=== PATIENT | male | born 1950 | race Caucasian/White ===

== ENCOUNTER 2016-11-12 13:05 | Emergency (ER) | payer OTHER ==
[2016-11-12 13:40] VITALS: RESP 16; TEMP 97.9
[2016-11-12] MEDS ORDERED: TDAP ADULT 0.5 ML VIAL (BOOSTRIX) IM ONE (13:40)
--- NOTE | 2016-11-12 14:20 | DX ---
Right Index Finger 3 Views History: Laceration distally with possible metal shaving. Comparison: None available. Findings: No fractures identified. Alignment is normal. Bone mineralization is normal. 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 There is soft tissue irregularity at the palmar aspect of the distal phalanx with a 1-mm curvilinear radiopaque structure suspicious f or a foreign object. Impression: Curvilinear 1-mm possible radiopaque foreign object in the region of the laceration. Findings discussed with Dr. Barney Gr today at 1415 hours.
--- NOTE | 2016-11-12 14:49 | UCPHY ---
H & P Time Seen by Provider: 11/12/16 13:37 Patient Type: Established HPI/ROS: This patient sustained a laceration to his right index finger palmar aspect from a metal shaving from a drill press he was using at home shortly prior to arrival. 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 He reports moderate pain and moderate bleeding. He reports that there is a small amount of foreign body removed prior to arrival on questions possibility of further foreign bodies. He denies any other complaints ROS: Neuro: No numbness or tingling. Musculoskeletal: No bony pain. no difficulty moving the finger, 5 point ROS is otherwise negative. Past Medical/Surgical History: Otherwise healthy. Smoking Status: Never smoked Physical Exam: Physical Exam Vital signs are normal. General: No acute distress Cardiac: Brisk capillary refill is intact throughout. Skin: No rash or pallor. The patient has a 1 point 3 cm full-thickness laceration to the palmar aspect of the right 2nd finger with mild bleeding. There is 1 small 1 mm or so dark foreign body present after the wound was cleaned the removed with splinter forceps without difficulty. Patient tolerated this well. Neuro: Alert and oriented x3 with no sensorimotor deficits. Constitutional: Initial Vital Signs Temperature (C) 36.6 C 11/12/16 13:38 Heart Rate 75 11/12/16 13:38 Respiratory Rate 16 11/12/16 13:38 Blood Pressure 141/88 H 11/12/16 13:38 O2 Sat (%) 98 11/12/16 13:38 O2 Delivery Mode Room Air Allergies/Adverse Reactions: No Known Allergies Allergy (Verified 11/12/16 13:38) Home Medications: Medication Instructions Recorded No Medications [NO [place] 1 [place] [facility] [place] MDM/Departure - MDM Diagnostics: Finger x-ray: 1 mm radiopaque foreign body to the distal phalanx 2nd finger palmar aspect. I read this x-ray and then discussed with Dr. Tanner- radiologist. Procedures: Digital block: After verbal consent, chlorhexidine scrub, 27 gauge needle with 50 50 mix of 2% lidocaine and 0.5% Marcaine and a 10 mL syringe I injected 8 mm with 3 injections the base the finger with good effect. There are no complications. The wound is 1.3 cm, full-thickness. The wound was copiously irrigated with saline. The wound was explored for foreign bodies and a 1 mm black foreign bodies removed the splinter forceps without difficulty. The wound was prepped and draped in the normal sterile fashion. The edges were reapproximated using 4 0 Ethilon-1 interrupted suture, 4 running sutures with good hemostasis and cosmesis. The patient tolerated the procedure well. There were no complications. Medications Given: Discontinued Medications Diphtheria/Tetanus/Acell Pertussis (Boostrix) 0.5 ml IM .ONCE ONE Stop: 11/12/16 13:41 Last Admin: 11/12/16 14:02 Dose: 0.5 ml ED Course/Re-evaluation: Patient is placed in a tube gauze. I counseled him regarding wound care. - Depart Disposition: Home, Routine, Self-Care Clinical Impression: Finger laceration Qualifiers: Encounter type: initial encounter Qualifier Code: (S61.219A) Laceration without foreign body of unspecified finger without damage to nail, initial encounter Condition: Good Instructions: Finger Laceration (ED) Additional Instructions: Diagnosis: Finger laceration Plan: Keep the wound clean and dry for the next 2 days. Then clean it daily with warm soapy water Return for suture removal in 10-12 days Ibuprofen and Tylenol or Darvocet (has this at home) as needed for pain control. Return sooner than 10-12 days if he develops redness, discharge or any other concerns. Referrals: Frank Nazario MD [Primary Care Provider] - As per Instructions - PQRS PQRS Measurement: 134: Depression screening and followup, PRIME MD-PHQ2 (12 years and older) Over the last 2 weeks, how often have you been bothered by any of the following problems? 1. Feeling down, depressed, or hopeless? 2. Little interest or pleasure in doing things? Patient answered no to both 1 and 2 130: Documentation of medications. Reviewed all patient medications, doses, route and frequency. 226: Do you smoke? [No.] 47: 65 and older: Advanced care planning. Patient designates surrogate decision maker as spouse 51: 18 years old and older with diagnosis of COPD, spirometry performance. NA 52: 18 years old and older with COPD and symptoms of COPD or FEV1<60% predicted prescribed a B Agonist. NA
[2016-11-12 14:58] VITALS: BP 136/87; PULSE 72; O2SAT 96
== END 2016-11-12 14:58 | disposition home or self-care (01) ==
LOC: CED 13:05
PROC: 0HQFXZZ Repair Right Hand Skin, External Approach (ICD-10-PCS; principal; 2016-11-12)
DX: S61.220A Laceration with foreign body of right index finger without damage to nail, initial encounter (principal); W31.1XXA Contact with metalworking machines, initial encounter; Y92.019 Unspecified place in single-family (private) house as the place of occurrence of the external cause
CPT/HCPCS: 12041; 73140; 90471; 90715; G0463

== ENCOUNTER → 2018-03-30 | Outpatient (CLI) | payer OTHER | LOC: SUPIMAGING 09:06 | PROVIDERS: ATTEND Registered Nurse | DX: M25.572 Pain in left ankle and joints of left foot (principal) | CPT/HCPCS: 73610-PN ==

== ENCOUNTER → 2019-04-06 | Outpatient (CLI) | payer OTHER | LOC: FIMAGING 11:34 ==